=== PATIENT | female | born 1985 | race Caucasian/White ===

== ENCOUNTER → 2018-07-08 | Outpatient (CLI) | payer MEDICARE | LOC: M.CT 16:00 | DX: N20.0 Calculus of kidney (principal); K42.9 Umbilical hernia without obstruction or gangrene; I70.0 Atherosclerosis of aorta; R59.9 Enlarged lymph nodes, unspecified; Z90.89 Acquired absence of other organs; Z98.890 Other specified postprocedural states; Z87.442 Personal history of urinary calculi ==

== ENCOUNTER → 2020-10-16 | Outpatient (CLI) | payer MEDICARE, MEDICAID | LOC: M.RAD 09:00 | PROVIDERS: ATTEND Nurse Practitioner Family | DX: S72.401G Unspecified fracture of lower end of right femur, subsequent encounter for closed fracture with delayed healing (principal); G82.21 Paraplegia, complete; M85.89 Other specified disorders of bone density and structure, multiple sites; X58.XXXD Exposure to other specified factors, subsequent encounter ==